=== PATIENT | male | born 1995 | race Caucasian/White ===

== ENCOUNTER 2016-08-16 12:48 | Emergency (ER) | payer BC ==
[~2016-08-16] VITALS: Ht 172.7 cm; Wt 64.0 kg
[2016-08-16 13:01] VITALS: BP 119/89; PULSE 85; RESP 16; TEMP 98.6; O2SAT 99
--- NOTE | 2016-08-16 16:20 | PD ---
HPI Chief Complaint: General Weakness Time Seen by Provider: 16:16 Travel History International Travel<30 days: No Contact w/Intl Traveler<30days: No Traveled to known affect area: No History of Present Illness HPI 21-year-old male presents to the emergency Department with complaint of reproducible chest wall pain over the sternum 5 days. Reports feeling generally weak over the last 5 days. Denies fever, chills. 5 days ago he developed a migraine headache with nausea, decreased appetite, and decreased fluid intake. He has history of migraine headaches. His headache has since subsided and he denies headache at this time. His main complaint is the chest wall pain which is worse with taking deep breaths. This is breathing shallow because it hurts to take deep breaths. The pain is located over sternum. He has not taken any medications or tried any treatments to alleviate his symptoms. He denies abdominal pain, nausea, vomiting. Denies ear pain, nasal congestion, throat pain, cough. Patient reports decreased urination cynical and says he hasn't urinated since last night. Denies dysuria, urgency, frequency. Decreased fluid intake at the beginning of 5 days but has been "overloading" on fluids for the past 2 days. Denies history of DVT or PE. Denies leg edema. Denies hemoptysis. Denies recent travel, surgery, hospitalization. History of asthma as a child. Does not have primary care provider. Allergic to penicillin. No other modifying factors or associated signs and symptoms. PFSH Past Medical History Blood Disorders: No Depression: Yes (SUICIDE ATTEMPT IN 2006) Cardiovascular Problems: No Developmental Delay: No Diminished Hearing: No Headaches: Yes (migraines) Musculoskeletal: Yes (lumbar back pain) Neurologic: No Respiratory: No Immunizations Current: Yes Sickle Cell Disease: No Tetanus Vaccination: Unknown Influenza Vaccination: Yes Past Surgical History Appendectomy: Yes Social History Alcohol Use: Yes (monthly) Tobacco Use: No (quit january) Substance Use: No Allergies-Medications (Allergen,Severity, Reaction): Coded Allergies: Penicillin (Verified Allergy, Severe, SOB/SWELLING, 08/16/16) Reported Meds & Prescriptions Reported Meds & Active Scripts Active Review of Systems Except as stated in HPI: all other systems reviewed are Neg Physical Exam Narrative GENERAL: Well-nourished, well-developed male patient, in no acute distress SKIN: Warm and dry. HEAD: Atraumatic. Normocephalic. EYES: Pupils equal and round. No scleral icterus. No injection or drainage. ENT: Mucosa pink and moist. NECK: Trachea midline. CHEST: Reproducible chest wall tenderness over the lower sternal area; no crepitance or deformity. No retractions or use of accessory muscles. CARDIOVASCULAR: Regular rate and rhythm. No murmur appreciated. RESPIRATORY: No accessory muscle use. Clear to auscultation. Breath sounds equal bilaterally. GASTROINTESTINAL: Abdomen soft, non-tender, nondistended. Hepatic and splenic margins not palpable. Bowel sounds are active 4 quadrants. MUSCULOSKELETAL: No obvious deformities. No clubbing. No cyanosis. No edema. NEUROLOGICAL: Awake and alert. Oriented 3. No obvious cranial nerve deficits. Motor grossly within normal limits. Normal speech. Moves all extremities. 5/5 strength to all extremities. PSYCHIATRIC: Appropriate mood and affect; insight and judgment normal. Data Data Last Documented VS Vital Signs Date Time Temp Pulse Resp B/P Pulse Ox O2 Delivery O2 Flow Rate FiO2 08/16/16 13:01 98.6 85 16 119/89 99 Orders Chest, Single Ap (08/16/16 16:17) Electrocardiogram (08/16/16 16:21) Basic Metabolic Panel (Bmp) (08/16/16 16:49) Complete Blood Count With Diff (08/16/16 16:49) Urinalysis - C+S If Indicated (08/16/16 16:49) Iv Access Insert/Monitor (08/16/16 16:49) Sodium Chlor 0.9% 1000 Ml Inj (Ns 1000 M (08/16/16 16:49) Sodium Chloride 0.9% Flush (Ns Flush) (08/16/16 17:00) D-Dimer (08/16/16 16:49) Thyroid Stimulating Hormone (08/16/16 16:49) Ct Pulmonary Angiogram (08/16/16 ) Iohexol 350 Inj (Omnipaque 350 Inj) (08/16/16 18:48) Labs Laboratory Tests Test 08/16/16 17:10 White Blood Count 3.3 TH/MM3 Red Blood Count 5.25 MIL/MM3 Hemoglobin 15.1 GM/DL Hematocrit 45.0 % Mean Corpuscular Volume 85.8 FL Mean Corpuscular Hemoglobin 28.8 PG Mean Corpuscular Hemoglobin 33.5 % Concent Red Cell Distribution Width 12.4 % Platelet Count 132 TH/MM3 Mean Platelet Volume 8.6 FL Neutrophils (%) (Auto) 46.9 % Lymphocytes (%) (Auto) 33.9 % Monocytes (%) (Auto) 16.6 % Eosinophils (%) (Auto) 1.7 % Basophils (%) (Auto) 0.9 % Neutrophils # (Auto) 1.5 TH/MM3 Lymphocytes # (Auto) 1.1 TH/MM3 Monocytes # (Auto) 0.6 TH/MM3 Eosinophils # (Auto) 0.1 TH/MM3 Basophils # (Auto) 0.0 TH/MM3 CBC Comment AUTO DIFF Differential Total Cells 100 Counted Neutrophils % (Manual) 37 % Band Neutrophils % 1 % Lymphocytes % 42 % Monocytes % 18 % Eosinophils % 2 % Neutrophils # (Manual) 1.3 TH/MM3 Differential Comment FINAL DIFF MANUAL Platelet Estimate LOW Platelet Morphology Comment NORMAL D-Dimer Quantitative (PE/DVT) 0.93 MG/L FEU Urine Collection Type CLEAN CATCH Urine Color YELLOW Urine Turbidity CLEAR Urine pH 6.0 Urine Specific [place] 1.015 Urine Protein NEG mg/dL Urine Glucose (UA) NEG mg/dL Urine Ketones NEG mg/dL Urine Occult Blood NEG Urine Nitrite NEG Urine Bilirubin NEG Urine Leukocyte Esterase NEG Urine Squamous Epithelial 0-5 /hpf Cells Microscopic Urinalysis Comment CULT NOT INDICATED Sodium Level 139 MEQ/L Potassium Level 3.6 MEQ/L Chloride Level 100 MEQ/L Carbon Dioxide Level 29.0 MEQ/L Anion Gap 10 MEQ/L Blood Urea Nitrogen 7 MG/DL Creatinine 0.92 MG/DL Estimat Glomerular Filtration 102 ML/MIN Rate Random Glucose 113 MG/DL Calcium Level 8.8 MG/DL Thyroid Stimulating Hormone 1.540 uIU/ML [address] [place] [address] Medical Decision Making Medical Screen Exam Complete: Yes Emergency Medical Condition: Yes Medical Record Reviewed: Yes Differential Diagnosis Migraine headache, influenza, viral illness, mono, less likely PE Narrative Course 21-year-old male with unremarkable physical exam other than reproducible tenderness over the sternum on palpation. His lungs are clear and equal throughout. He is in no acute distress and his oxygen saturation is 99% on room air. He is without retractions or tachypnea. History of migraine headaches and experienced migraine that has subsided over the past 5 days. He is without fever, chills, nausea, vomiting. He has been without cough, nasal congestion, sore throat, ear pain. The patient denies history of PE or DVT; denies recent surgery or trauma, hemoptysis and, leg edema. The patient has no present criteria for pulmonary embolism; using the PERC rule for pulmonary embolism there is no need for further workup for PE. EKG and chest x-ray ordered. 1644: EKG with sinus bradycardia with PACs. I spoke with Dr. Perez, my attending physician, and she recommended CBC, BMP, TSH, d-dimer. Orders entered. IV site obtained and normal saline bolus ordered. 1736: Chest x-ray concludes No evidence of acute cardiopulmonary disease. WBC 3.3. Platelets 132. BMP unremarkable. D-dimer 0.93. I spoke with Dr. Perez and she recommended chest pulmonary angiogram. Orders entered. 1913: TSH 1.540. Urinalysis unremarkable. 1914: CT pulmonary angiogram concludes No DVT or other acute abnormality. Ibuprofen prescribed for home. Patient is medically cleared and stable for discharge. Discussed reasons to return to the emergency department. Instructed patient to follow up with primary care provider. Patient agrees with treatment plan. The patients vital signs are stable and the patient is stable for outpatient follow-up and treatment. Patient discharged home, stable and in no acute distress. Diagnosis Primary Impression: Chest wall pain Referrals: Primary Care Physician Patient Instructions: Chest Wall Pain (ED), General Instructions Additional Instructions: Ibuprofen or Tylenol as instructed and as needed for pain Avoid aggravating activity Follow-up with primary care provider Return to the emergency department immediately with worsening of symptoms Med/Other Pt SpecificInfo: Prescription(s) given Scripts Ibuprofen 800 Mg [id number] Mg PO Q6HR PRN (PAIN) #30 TAB Ref 0 Prov:Jo Ramires 08/16/16 Disposition: DISCHARGE HOME Condition: Stable Jo Ramires Aug 16, 2016 16:20
[2016-08-16] MEDS ORDERED: SODIUM CHLOR 0.9% 1000 ML INJ 1,000 ML IV SCH (16:49)
[2016-08-16 17:00] VITALS: BP 118/74; PULSE 55; RESP 18; O2SAT 98
[2016-08-16] MEDS ORDERED: SODIUM CHLORIDE 0.9% FLUSH 5 ML FLUSH IVF PRN (17:00)
--- NOTE | 2016-08-16 17:11 | RADHPO ---
EXAM DATE/TIME: 08/16/2016 16:52 [facility] COMPARISON: CHEST SINGLE AP, August 15, 2014, 15:46. INDICATIONS : Chest pain. MEDICAL HISTORY : None. SURGICAL HISTORY : None. ENCOUNTER: Initial ACUITY: 1 day PAIN SCORE: 4/10 LOCATION: Bilateral chest FINDINGS: A single view of the chest demonstrates the lungs to be symmetrically aerated without evidence of mas s, infiltrate or effusion. The cardiomediastinal contours are unremarkable. Osseous structures are intact. CONCLUSION: No evidence of acute cardiopulmonary disease. Hussein Moya MD on August 16, 2016 at 17:09 Board Certified Radiologist. This report was verified electronically.
[2016-08-16 17:24] LABS: AUTOMATED NEUTROPHIL # 1.5 TH/MM3 (1.8-7.7); BASOPHIL % 0.9 % (0.0-2.0); EOSINOPHIL # 0.1 TH/MM3 (0-0.4); EOSINOPHIL % 1.7 % (0.0-4.0); LYMPH % 33.9 % (9.0-44.0); LYMPHOCYTE # 1.1 TH/MM3 (1.0-4.8); MEAN CELL VOLUME 85.8 FL (80.0-100.0); MEAN CORPUSCULAR HEMOGLOBIN 28.8 PG (27.0-34.0); MEAN CORPUSCULAR HGB CONC 33.5 % (32.0-36.0); MONO % 16.6 % (0.0-8.0); NEUT % 46.9 % (16.0-70.0); PLATELET COUNT 132 TH/MM3 (150-450); RED BLOOD COUNT 5.25 MIL/MM3 (4.50-5.90); RED CELL DISTRIBUTION WIDTH 12.4 % (11.6-17.2); WHITE BLOOD COUNT 3.3 TH/MM3 (4.0-11.0)
[2016-08-16 17:27] LABS: BLOOD, URINE NEG (NEG); GLUCOSE,URINE NEG (NEG); KETONE, URINE NEG (NEG); NITRITE,URINE NEG (NEG)
[2016-08-16 17:30] LABS: HEMO FLAGS AUTO DIFF
[2016-08-16 17:31] LABS: POTASSIUM 3.6 MEQ/L (3.5-5.1)
[2016-08-16] MEDS ORDERED: PRED-503 PO (17:38)
[2016-08-16] MEDS ORDERED: IBUP800T23 PO ×2 (17:38→19:16)
[2016-08-16 17:48] LABS: COMMENT (UR) CULT NOT INDICATED; CULTURE IF INDICATED CULT NOT INDICATED; METHOD OF COLLECTION CLEAN CATCH; SQUAMOUS EPITHELIAL CELL URINE 0-5 /hpf (0-5); URINE COLOR YELLOW (YELLW/STRAW)
[2016-08-16 18:02] LABS: BANDS 1 % (0-6); EOSINOPHILS 2 % (0-4); NEUTROPHIL # MANUAL DIFF 1.3 TH/MM3 (1.8-7.7); PLATELET ESTIMATE SMEAR LOW (NORMAL); PLATELET MORPHOLOGY NORMAL (NORMAL); POLYS (SEG NEUTROPHILS) 37 % (16-70); SCAN/DIFF FINAL DIFF MANUAL; WBC DIFF SAMPLE 100
[2016-08-16] MEDS ORDERED: IOHEXOL 350 MG/ML 10 ML VIAL (for RAD DIAG) IV ONE (18:48)
--- NOTE | 2016-08-16 18:56 | RADHPO ---
EXAM DATE/TIME: 08/16/2016 18:40 [facility] COMPARISON: No previous studies available for comparison. INDICATIONS : Anterior chest pressure. Evaluate for embolism. IV CONTRAST: 65 cc Omnipaque 350 (iohexol) IV RADIATION DOSE: 8.23 CTDIvol (mGy) MEDICAL HISTORY : None SURGICAL HISTORY : Appendectomy. ENCOUNTER: Initial ACUITY: 1 day PAIN SCALE: 3/10 LOCATION: anterior chest TECHNIQUE: Volumetric scanning of the chest was performed using a pulmonary embolism protocol MIP images were re constructed. Using automated exposure control and adjustment of the mA and/or kV according to patien t size, radiation dose was kept as low as reasonably achievable to obtain optimal diagnostic quality images. FINDINGS: PULMONARY ARTERIES: No filling defects are seen in the pulmonary arteries through the segmental level. LUNGS: There is no consolidation or pneumothorax . No concerning pulmonary nodule is visualized. PLEURAE: There is no pleural thickening or pleural effusion. MEDIASTINUM: There is good visualization of the great vessels of the middle mediastinum. No evidence of mediastin al or hilar adenopathy/mass. MUSCULOSKELETAL: Within normal limits for patient age. MISCELLANEOUS: The visualized upper abdominal organs demonstrate no acute abnormality. CONCLUSION: No DVT or other acute abnormality. Hussein Moya MD on August 16, 2016 at 18:53 Board Certified Radiologist. This report was verified electronically.
[2016-08-16 19:36] VITALS: BP 116/80
--- NOTE | 2016-08-17 17:58 | EKG ---
Date Performed: 08/16/2016 Time Performed: 16:28:20 PTAGE: 21 years EKG: Sinus bradycardia with PAC(s) Septal T wave changes are borderline abnormal Since previous tracing, no significant change noted Borderline ECG PREVIOUS TRACING : 08/15/2014 16.02 DOCTOR: Colette Ellison Interpretating Date/Time 08/17/2016 17:57:31
== END 2016-08-16 19:37 | disposition home or self-care (01) ==
LOC: PHED 12:48 → PHEFT 19:37
DX: R07.89 Other chest pain (principal); R00.1 Bradycardia, unspecified; R94.31 Abnormal electrocardiogram [ECG] [EKG]
CPT/HCPCS: 71010; 71275; 80048; 81001; 84443; 85007; 85027; 85379; 93005; 96360; 99284; J7030; Q9967